=== PATIENT | male | born 1975 | race Caucasian/White ===

== ENCOUNTER 2016-10-25 23:42 | Emergency (ER) | payer OTHER ==
[~2016-10-25] VITALS: Ht 182.9 cm; Wt 117.9 kg
[~2016-10-25 23:42] MED LIST: PRILOSEC OTC PO
[2016-10-26] MEDS ORDERED: MELO15TA4 PO (00:14)
[2016-10-26] MEDS ORDERED: LISI30TA4 PO (00:15)
[2016-10-26 02:21] VITALS: BP 132/78
== END 2016-10-26 05:34 | disposition left against medical advice (07) ==
LOC: M ED 10-26 01:13
DX: M54.9 Dorsalgia, unspecified (principal); Z53.21 Procedure and treatment not carried out due to patient leaving prior to being seen by health care provider

== ENCOUNTER 2021-07-25 07:15 | Emergency (ER) | payer OTHER ==
[~2021-07-25] VITALS: Ht 182.9 cm; Wt 121.8 kg
[~2021-07-25 07:15] MED LIST changes: +LISI30TA4 PO; +MELO15TA28 PO
[2021-07-25] MEDS ORDERED: OMEP-218 (07:27)
--- NOTE | 2021-07-25 09:57 | REP ---
INDICATION: covid weakness COMPARISON: 01/25/2011 TECHNIQUE: Portable AP view of the chest FINDINGS: The mediastinum and cardiac silhouette are stable and within normal limits for portable technique. The lung kaur are clear without acute consolidation, effusion, or pneumothorax. Skeletal structures are intact. IMPRESSION: No acute cardiopulmonary process appreciated. <Electronically signed by Srinivas May > 07/25/21 0953
[2021-07-25 10:30] LABS: BASO # 0.1 10^3/uL (0.0-0.2); BASO % 0.5 % (0.0-1.0); EOS % 0.1 % (0.0-3.0); HEMATOCRIT 43.7 % (42.0-52.0); LYMPH # 1.6 10^3/uL (1.5-5.0); MEAN CORPUSCULAR HEMOGLOBIN 31.1 pg (27.0-33.0); MEAN CORPUSCULAR HGB CONC 34.3 g/dl (32.0-36.5); MEAN CORPUSCULAR VOLUME 90.5 fl (80.0-96.0); MONO # 1.2 10^3/uL (0.0-0.8); MONO % 10.6 % (2.0-8.0); NEUTROPHILS # 8.2 10^3/uL (1.5-8.5); NEUTROPHILS % 74.2 % (36.0-66.0); PLATELET COUNT, AUTOMATED 206 10^3/uL (150-450); RED BLOOD COUNT 4.83 10^6/uL (4.30-6.10); WHITE BLOOD COUNT 11.1 10^3/uL (4.0-10.0)
[2021-07-25 11:02] LABS: ALBUMIN 3.8 GM/DL (3.2-5.2); ALT/SGPT 36 U/L (12-78); BILIRUBIN,TOTAL 0.6 MG/DL (0.2-1.0); BLOOD UREA NITROGEN 8 MG/DL (7-18); CALCIUM LEVEL 8.8 MG/DL (8.5-10.1); CARBON DIOXIDE LEVEL 27 MEQ/L (21-32); CHLORIDE LEVEL 102 MEQ/L (98-107); CREATININE FOR GFR 0.97 MG/DL (0.70-1.30); GLOMERULAR FILTRATION RATE > 60.0 (>60); GLUCOSE, FASTING 122 MG/DL (70-100); POTASSIUM SERUM 3.7 MEQ/L (3.5-5.1); SODIUM LEVEL 135 MEQ/L (136-145); TOTAL PROTEIN 7.2 GM/DL (6.4-8.2)
[2021-07-25 11:40] LABS: INR 0.97; PROTHROMBIN TIME 13.2 SECONDS (12.7-14.5)
[2021-07-25 11:41] LABS: PARTIAL THROMBOPLASTIN TIME 33.5 SECONDS (25.9-37.0)
[2021-07-25 11:43] LABS: D-DIMER QUANT 316.28 ng/ml (<500)
[2021-07-25 12:03] LABS: C REACTIVE PROTEIN QUANTITATIV 5.68 MG/DL (0.00-0.30); MAGNESIUM LEVEL 1.7 MG/DL (1.8-2.4)
[2021-07-25 12:14] LABS: CK-MB VALUE MASS < 1.0 NG/ML (<3.6); CPK CREATINE PHOSPHOKINASE 85 U/L (39-308); MB/CK RELATIVE INDEX 1.18 (< OR =4)
[2021-07-25 15:16] VITALS: BP 138/80
[2021-07-25] MEDS ORDERED: VENTAER INH (15:33)
[2021-07-25] MEDS ORDERED: ECOT81TA5 PO (15:33)
[2021-07-25] MEDS ORDERED: TESS100C PO (15:33)
--- NOTE | 2021-07-25 16:07 | ECGEPIP ---
[facility] - ED Test Date: 2021-07-25 Pat Name: ABDELRAHMAN BOWER Department: Room: - Gender: Male [employer] Developer: TALA : 1975 Requested By: Sisi Zarco PA-C Order Number: [id number] Reading MD: Lianna Rodriguez Measurements Intervals [place] Rate: 99 P: 54 GA: 154 QRS: 26 QRSD: 94 T: 20 QT: 326 QTc: 418 Interpretive Statements Normal sinus rhythm inferior infarct NSTTW abnormalities increased rate 10/29/14 Electronically Signed on 07-25-2021 16:07:16 EST by Lianna Rodriguez
== END 2021-07-25 15:33 | disposition home or self-care (01) ==
LOC: M ED 07:15
DX: R05.9 Cough, unspecified (principal); J02.9 Acute pharyngitis, unspecified; R52 Pain, unspecified; U07.1 COVID-19; Z79.899 Other long term (current) drug therapy; Z79.82 Long term (current) use of aspirin

== ENCOUNTER 2021-07-25 19:37 | Outpatient (CLI) | payer OTHER ==
[~2021-07-25] VITALS: Ht 182.9 cm; Wt 119.0 kg
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
[2021-07-25 16:34] VITALS: BP 134/93
[2021-07-25 17:04] VITALS: BP 146/73
[2021-07-25 17:34] VITALS: BP 127/67
[2021-07-25 18:34] VITALS: BP 166/94
[~2021-07-25 19:37] MED LIST changes: +ACETAMINOPHEN TAB 650MG DOSE (2X325MG) PO PRN; +ALBUTEROL 90 MCG/ACT 8GM HFA INHALER INH PRN; +ALBUTEROL SULFATE 2.5 MG/0.5 ML INH NEB SOLN INH PRN; +BAMLANIVIMAB 700 MG, ETESEVIMAB 1,400 MG in NS 250 ML IV ONE; +ECOT81TA5 PO; +EPINEPHrine INJ 1 MG/ML 1ML AMP IM PRN; +NS 1,000 ML IV SCH; +OMEP-218; +TESS100C PO; +VENTAER INH; +diphenhydrAMINE 50MG/ML VIAL (J1200) IV PRN; +methylPREDNISolone 125MG 2ML VIAL IV PRN
== END 2021-07-25 19:40 | disposition home or self-care (01) ==
LOC: M OPCLI4 19:37
PROVIDERS: ATTEND Internal Medicine
DX: U07.1 COVID-19 (principal)

== ENCOUNTER → 2023-06-23 | Outpatient (REF) | payer OTHER ==
[~2023-06-23] MED LIST changes: -ACETAMINOPHEN TAB 650MG DOSE (2X325MG) PO PRN; -ALBUTEROL 90 MCG/ACT 8GM HFA INHALER INH PRN; -ALBUTEROL SULFATE 2.5 MG/0.5 ML INH NEB SOLN INH PRN; -BAMLANIVIMAB 700 MG, ETESEVIMAB 1,400 MG in NS 250 ML IV ONE; -EPINEPHrine INJ 1 MG/ML 1ML AMP IM PRN; -NS 1,000 ML IV SCH; +OMEP-173 PO; -OMEP-218; -diphenhydrAMINE 50MG/ML VIAL (J1200) IV PRN; -methylPREDNISolone 125MG 2ML VIAL IV PRN
[2023-06-23 18:58] LABS: BASO # 0.1 10^3/uL (0.0-0.2); BASO % 0.6 % (0.0-1.0); EOS # 0.2 10^3/uL (0.0-0.5); EOS % 1.7 % (0.0-3.0); HEMATOCRIT 46.8 % (42.0-52.0); HEMOGLOBIN 16.1 g/dl (13.5-17.5); LYMPH # 3.4 10^3/uL (1.5-5.0); LYMPH % 34.6 % (24.0-44.0); MEAN CORPUSCULAR HEMOGLOBIN 31.4 pg (27.0-33.0); MEAN CORPUSCULAR HGB CONC 34.4 g/dl (32.0-36.5); MEAN CORPUSCULAR VOLUME 91.2 fl (80.0-96.0); MONO # 0.7 10^3/uL (0.0-0.8); MONO % 6.9 % (2.0-8.0); NEUTROPHILS # 5.5 10^3/uL (1.5-8.5); NEUTROPHILS % 55.5 % (36.0-66.0); PLATELET COUNT, AUTOMATED 303 10^3/uL (150-450); RED BLOOD COUNT 5.13 10^6/uL (4.30-6.10); WHITE BLOOD COUNT 9.8 10^3/uL (4.0-10.0)
[2023-06-23 19:24] LABS: HEMOGLOBIN A1c 5.5 % (4.0-6.0)
[2023-06-23 19:34] LABS: ALBUMIN 4.2 G/DL (3.2-5.2); ALKALINE PHOSPHATASE 50 U/L (46-116); ALT/SGPT 24 U/L (7.0-40); AST/SGOT 15 U/L (<34); BILIRUBIN,TOTAL 0.6 MG/DL (0.3-1.2); BLOOD UREA NITROGEN 17 MG/DL (9-23); CALCIUM LEVEL 9.3 MG/DL (8.5-10.1); CARBON DIOXIDE LEVEL 24 MMOL/L (20-31); CHLORIDE LEVEL 105 MMOL/L (98-107); CHOLESTEROL LEVEL 191 MG/DL (<200); CHOLESTEROL RISK RATIO 3.48 (<5); CREATININE FOR GFR 0.76 MG/DL (0.70-1.30); GLOMERULAR FILTRATION RATE > 60.0 (>60); GLUCOSE, FASTING 93 MG/DL (60-100); HDL CHOLESTEROL 54.8 MG/DL (>40); LDL CHOLESTEROL 96.2 MG/DL (<100); NON-HDL-C 136.2 MG/DL; POTASSIUM SERUM 4.4 MMOL/L (3.5-5.1); SODIUM LEVEL 137 MMOL/L (136-145); THYROID STIMULATING HORMONE 0.652 uIU/ML (0.55-4.78); TOTAL 25(OH) VITAMIN D 22.6 NG/ML (20.0-100.0); TOTAL PROTEIN 7.3 G/DL (5.7-8.2); TRIGLYCERIDES LEVEL 200 MG/DL (<150)
== END ==
LOC: M LAB REF 16:40
PROVIDERS: ATTEND Nurse Practitioner Family
DX: E66.3 Overweight (principal); E55.9 Vitamin D deficiency, unspecified; R53.83 Other fatigue; Z11.9 Encounter for screening for infectious and parasitic diseases, unspecified; Z12.5 Encounter for screening for malignant neoplasm of prostate

== ENCOUNTER 2023-07-21 07:24 | Day surgery (SDC) | payer OTHER ==
[~2023-07-21] VITALS: Ht 182.9 cm; Wt 116.6 kg
[~2023-07-21 07:24] MED LIST changes: +NS 1,000 ML IV ONE
[2023-07-21] MEDS ORDERED: propofoL 200 MG/20 ML VIAL As Ordered ONE ×2 (08:40→08:46)
[2023-07-21] MEDS ORDERED: LIDOCAINE 2% 100MG/5ML SDV (FOR ANES.) As Ordered ONE (08:40)
[2023-07-21] MEDS ORDERED: fentaNYL 100 MCG/2 ML INJECTION As Ordered ONE (08:40)
[2023-07-21 09:13] VITALS: TEMP 96.7
[2023-07-21 09:28] VITALS: BP 124/65; O2SAT 94
== END 2023-07-21 09:29 | disposition home or self-care (01) ==
LOC: M OPP 07:24
PROVIDERS: ATTEND Surgery
DX: Z12.11 Encounter for screening for malignant neoplasm of colon (principal); K64.0 First degree hemorrhoids; K29.70 Gastritis, unspecified, without bleeding; K31.89 Other diseases of stomach and duodenum; K30 Functional dyspepsia; Z79.899 Other long term (current) drug therapy
CPT/HCPCS: 43239; 45378; 88305; J3010

== ENCOUNTER → 2023-09-13 | Outpatient (CLI) | payer MEDICAID, OTHER, SELFPAY ==
[~2023-09-13] MED LIST changes: -NS 1,000 ML IV ONE
== END ==
LOC: M RAD 12:19
PROVIDERS: ATTEND Surgery
DX: K43.9 Ventral hernia without obstruction or gangrene (principal)